=== PATIENT | female | born 1960 | race Two or more races ===

== ENCOUNTER 2019-04-07 10:55 | Emergency (ER) | payer MEDICAID ==
[~2019-04-07] VITALS: Ht 172.7 cm; Wt 115.2 kg
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
[2019-04-07] MEDS ORDERED: ACETAMINOPHEN 325 MG TABLET PO ONE (11:30)
[2019-04-07] MEDS ORDERED: ACETAMINOPHEN 325 MG TABLET ONE (11:39)
--- NOTE | 2019-04-07 12:19 | NUR ---
Patient discharged to home in stable condition. Written and verbal after care instructions given. Patient verbalizes understanding of instruction.
[2019-04-07 12:20] VITALS: BP 130/88
== END 2019-04-07 12:25 | disposition home or self-care (01) ==
LOC: ER 10:57
DX: S00.03XA Contusion of scalp, initial encounter (principal); S09.8XXA Other specified injuries of head, initial encounter; R51 Headache; I10 Essential (primary) hypertension; F10.10 Alcohol abuse, uncomplicated; Y90.9 Presence of alcohol in blood, level not specified; W22.8XXA Striking against or struck by other objects, initial encounter; Y93.89 Activity, other specified; Y92.511 Restaurant or cafe as the place of occurrence of the external cause; Y99.8 Other external cause status
CPT/HCPCS: 70450-TC